=== PATIENT | male | born 1970 | race Hispanic/Latino ===

== ENCOUNTER 2020-09-13 21:12 | Inpatient (IN) | payer OTHER, SELFPAY ==
[~2020-09-13] VITALS: Ht 180.3 cm; Wt 95.6 kg
[2020-09-13 21:18] VITALS: BP 126/65
[2020-09-13 21:22] LABS: ABG BASE EXCESS 1.7 mmol/L (-2.0-3.0); ABG HCO3 25.1 mmol/L (21.0-28.0); ABG OXYGEN SATURATION 92.4 % (95.0-99.0); ABG PCO2 36 mmHg (35-48)
[2020-09-13] MEDS ORDERED: ALBUTEROL INHALER 90MCG/INH IH PRN (21:30)
[2020-09-13 21:38] LABS: BASOPHILS % (AUTO) 0.3 % (0.0-5.0); EOSINOPHILS % (AUTO) 0.3 % (0.0-8.0); HEMATOCRIT 39.9 % (42-54); LYMPHOCYTES % (AUTO) 6.2 % (21.0-51.0); MEAN CORPUSCULAR HEMOGLOBIN 29.1 pg (27.0-33.0); MEAN CORPUSCULAR HGB CONC 34.3 g/dL (32.0-36.0); MEAN CORPUSCULAR VOLUME 84.7 fL (79-99); MONOCYTES % (AUTO) 4.7 % (3.0-13.0); NEUTROPHILS % (AUTO) 86.6 % (40.0-77.0); PLATELET COUNT (AUTO) 399 K/uL (130-400); RED BLOOD CELL COUNT(AUTO) 4.71 MIL/uL (4.50-6.20); RED CELL DISTRIBUTION WIDTH 12.1 % (11.0-15.5); WHITE BLOOD COUNT (AUTO) 11.4 K/uL (4.8-10.8)
[2020-09-13 21:48] LABS: POTASSIUM 3.7 mmol/L (3.5-5.1)
[2020-09-13 21:52] LABS: ALBUMIN 2.9 g/dL (3.5-5.0); BILIRUBIN,TOTAL 1.1 mg/dL (0.2-1.0); TOTAL PROTEIN, SERUM 7.9 g/dL (6.0-8.3)
[2020-09-13 22:12] LABS: B-TYPE NATRIURETIC PEPTIDE 25 pg/mL (0-100)
[2020-09-13] MEDS ORDERED: ACETAMINOPHEN WITH CODEINE 1 TAB TAB PO ONE (22:30)
[2020-09-13] MEDS ORDERED: AZITHROMYCIN 250 MG TABLET PO ONE (22:30)
[2020-09-13] MEDS ORDERED: CEFTRIAXONE 1G VIAL IVP ONE (22:30)
[2020-09-13 22:37] VITALS: BP 114/55
[2020-09-13] MEDS: CEFTRIAXONE 1G VIAL IVP SCH (23:00)
[2020-09-13] MEDS: 0.9% NACL 250ML IVPB SCH (23:00)
[2020-09-13] MEDS: AZITHROMYCIN 500MG VIAL IVPB SCH (23:00)
[2020-09-13] MEDS ORDERED: ERGOCALCIFEROL (VITAMIN D2) 50,000 UNIT CAPSULE PO ONE (23:00)
[2020-09-13] MEDS ORDERED: LACTATED RINGERS 1000ML 1,000 ML IV SCH (23:00)
[2020-09-13] MEDS: DEXAMETHASONE SOD PHOSPHATE 4 MG/ML 1ML VIAL IVP SCH (23:23)
[2020-09-14] VITALS (8 sets, daily range): BP systolic 115–159; BP diastolic 63–78
[2020-09-14] MEDS ORDERED: OSELTAMIVIR PHOSPHATE 75 MG CAP PO SCH (00:30)
[2020-09-14] MEDS: FAMOTIDINE 20MG VIAL IV SCH ×2 (08:06→20:16)
[2020-09-14] MEDS: ASCORBIC ACID 500 MG TAB PO SCH (08:06)
[2020-09-14] MEDS: ZINC SULFATE 220 CAPSULE PO SCH (08:06)
[2020-09-14] MEDS: ENOXAPARIN SODIUM 40 MG/0.4 ML SYRINGE SQ SCH (08:07)
[2020-09-14 08:37] LABS: BASOPHILS % (AUTO) 0.2 % (0.0-5.0); EOSINOPHILS % (AUTO) 0.4 % (0.0-8.0); HEMATOCRIT 41.9 % (42-54); MEAN CORPUSCULAR HEMOGLOBIN 28.9 pg (27.0-33.0); MEAN CORPUSCULAR HGB CONC 33.4 g/dL (32.0-36.0); MEAN CORPUSCULAR VOLUME 86.4 fL (79-99); NEUTROPHILS % (AUTO) 88.4 % (40.0-77.0); PLATELET COUNT (AUTO) 433 K/uL (130-400); RED BLOOD CELL COUNT(AUTO) 4.85 MIL/uL (4.50-6.20); RED CELL DISTRIBUTION WIDTH 12.5 % (11.0-15.5); WHITE BLOOD COUNT (AUTO) 11.4 K/uL (4.8-10.8)
[2020-09-14 08:57] LABS: ALBUMIN 2.8 g/dL (3.5-5.0); BILIRUBIN,TOTAL 0.8 mg/dL (0.2-1.0); CREATININE 0.9 mg/dL (0.5-1.5); CRP QUANTITATIVE 142.9 mg/L (0.00-9.0); POTASSIUM 4.2 mmol/L (3.5-5.1)
[2020-09-14] MEDS: CEFTRIAXONE 1G VIAL IVP SCH ×2 (12:09→23:18)
[2020-09-14] MEDS ORDERED: AZITHROMYCIN 500MG+NS 250ML 250 ML IV ONE (22:34)
[2020-09-14] MEDS: DEXAMETHASONE SOD PHOSPHATE 4 MG/ML 1ML VIAL IVP SCH (23:18)
[2020-09-14] MEDS: 0.9% NACL 250ML IVPB SCH (23:18)
[2020-09-14] MEDS: AZITHROMYCIN 500MG VIAL IVPB SCH (23:19)
[2020-09-15 03:21] VITALS: BP 116/72
[2020-09-15 04:32] LABS: BASOPHILS % (AUTO) 0.2 % (0.0-5.0); EOSINOPHILS % (AUTO) 0.2 % (0.0-8.0); HEMATOCRIT 39.5 % (42-54); LYMPHOCYTES % (AUTO) 6.3 % (21.0-51.0); MEAN CORPUSCULAR HEMOGLOBIN 28.8 pg (27.0-33.0); MEAN CORPUSCULAR HGB CONC 33.9 g/dL (32.0-36.0); MEAN CORPUSCULAR VOLUME 84.9 fL (79-99); MONOCYTES % (AUTO) 2.8 % (3.0-13.0); NEUTROPHILS % (AUTO) 88.2 % (40.0-77.0); PLATELET COUNT (AUTO) 442 K/uL (130-400); RED BLOOD CELL COUNT(AUTO) 4.65 MIL/uL (4.50-6.20); RED CELL DISTRIBUTION WIDTH 12.2 % (11.0-15.5); WHITE BLOOD COUNT (AUTO) 13.7 K/uL (4.8-10.8)
[2020-09-15 04:49] LABS: ALBUMIN 2.4 g/dL (3.5-5.0); CREATININE 0.9 mg/dL (0.5-1.5); POTASSIUM 4.3 mmol/L (3.5-5.1); TOTAL PROTEIN, SERUM 7.3 g/dL (6.0-8.3)
[2020-09-15 05:15] LABS: CRP QUANTITATIVE 177.4 mg/L (0.00-9.0)
[2020-09-15 08:00] VITALS: BP 133/71
[2020-09-15] MEDS: ENOXAPARIN SODIUM 40 MG/0.4 ML SYRINGE SQ SCH (08:12)
[2020-09-15] MEDS: FAMOTIDINE 20MG VIAL IV SCH ×2 (08:12→20:35)
[2020-09-15] MEDS: ZINC SULFATE 220 CAPSULE PO SCH (08:12)
[2020-09-15] MEDS: ASCORBIC ACID 500 MG TAB PO SCH (08:12)
[2020-09-15] MEDS ORDERED: PHARMACY COMMUNICATION MISC SCH ×3 (09:30→11:00)
[2020-09-15] MEDS: CEFTRIAXONE 1G VIAL IVP SCH ×2 (11:12→22:29)
[2020-09-15 12:00] VITALS: BP 109/75
[2020-09-15] MEDS ORDERED: COMPOUND IV REFRIGERATED 1 EACH IVSOLN MISC PRN (15:00)
[2020-09-15] MEDS ORDERED: REMDESIVIR (EUA) 520 200 MG in 0.9% NACL 250ML 250 ML IV ONE (15:00)
[2020-09-15] MEDS ORDERED: 0.9% NACL 500ML IV.SOLN 500 ML IV ONE (15:25)
[2020-09-15 16:00] VITALS: BP 133/76
[2020-09-15 21:02] VITALS: BP 136/79
[2020-09-15] MEDS ORDERED: AZITHROMYCIN 500MG+NS 250ML 250 ML IV ONE (22:08)
[2020-09-15] MEDS: 0.9% NACL 250ML IVPB SCH (22:30)
[2020-09-15] MEDS: DEXAMETHASONE SOD PHOSPHATE 4 MG/ML 1ML VIAL IVP SCH (22:30)
[2020-09-15] MEDS: AZITHROMYCIN 500MG VIAL IVPB SCH (22:34)
[2020-09-15 23:23] VITALS: BP 136/77
[2020-09-16 03:05] VITALS: BP 131/73
[2020-09-16 03:58] LABS: BASOPHILS % (AUTO) 0.4 % (0.0-5.0); EOSINOPHILS % (AUTO) 0.1 % (0.0-8.0); HEMATOCRIT 40.5 % (42-54); LYMPHOCYTES % (AUTO) 5.7 % (21.0-51.0); MEAN CORPUSCULAR HEMOGLOBIN 29.3 pg (27.0-33.0); MEAN CORPUSCULAR HGB CONC 34.3 g/dL (32.0-36.0); MEAN CORPUSCULAR VOLUME 85.4 fL (79-99); NEUTROPHILS % (AUTO) 87.1 % (40.0-77.0); PLATELET COUNT (AUTO) 466 K/uL (130-400); RED BLOOD CELL COUNT(AUTO) 4.74 MIL/uL (4.50-6.20); RED CELL DISTRIBUTION WIDTH 12.1 % (11.0-15.5); WHITE BLOOD COUNT (AUTO) 12.8 K/uL (4.8-10.8)
[2020-09-16 04:33] LABS: ALBUMIN 2.2 g/dL (3.5-5.0); BILIRUBIN,TOTAL 0.6 mg/dL (0.2-1.0); CREATININE 0.8 mg/dL (0.5-1.5); CRP QUANTITATIVE 132.9 mg/L (0.00-9.0); POTASSIUM 4.3 mmol/L (3.5-5.1); TOTAL PROTEIN, SERUM 7.3 g/dL (6.0-8.3)
[2020-09-16] MEDS: REMDESIVIR LABS MISC SCH (07:16)
[2020-09-16 08:00] VITALS: BP 127/74
[2020-09-16] MEDS: FAMOTIDINE 20MG VIAL IV SCH ×2 (08:23→21:19)
[2020-09-16] MEDS: ZINC SULFATE 220 CAPSULE PO SCH (08:23)
[2020-09-16] MEDS: ASCORBIC ACID 500 MG TAB PO SCH (08:23)
[2020-09-16] MEDS: ENOXAPARIN SODIUM 40 MG/0.4 ML SYRINGE SQ SCH ×2 (08:24→21:24)
[2020-09-16] MEDS: CEFTRIAXONE 1G VIAL IVP SCH ×2 (11:22→23:05)
[2020-09-16 12:00] VITALS: BP 120/73
[2020-09-16] MEDS: REMDESIVIR (EUA) 520 100 MG in 0.9% NACL 250ML 250 ML IV SCH (14:48)
[2020-09-16] MEDS: OSELTAMIVIR PHOSPHATE 75 MG CAP PO SCH ×2 (14:50→21:19)
[2020-09-16 16:00] VITALS: BP 134/81
[2020-09-16] MEDS: SIMETHICONE 80 MG TAB.CHEW PO SCH (18:16)
[2020-09-16 20:39] VITALS: BP 131/79
[2020-09-16] MEDS ORDERED: AZITHROMYCIN 500MG+NS 250ML 250 ML IV ONE (22:36)
[2020-09-16] MEDS: DEXAMETHASONE SOD PHOSPHATE 4 MG/ML 1ML VIAL IVP SCH (23:05)
[2020-09-16] MEDS: AZITHROMYCIN 500MG VIAL IVPB SCH (23:06)
[2020-09-16] MEDS: 0.9% NACL 250ML IVPB SCH (23:06)
[2020-09-17] VITALS (7 sets, daily range): BP systolic 112–137; BP diastolic 65–78
[2020-09-17] MEDS: REMDESIVIR LABS MISC SCH (06:00)
[2020-09-17 06:15] LABS: BASOPHILS % (AUTO) 0.4 % (0.0-5.0); EOSINOPHILS % (AUTO) 0.1 % (0.0-8.0); HEMATOCRIT 40.4 % (42-54); LYMPHOCYTES % (AUTO) 6.2 % (21.0-51.0); MEAN CORPUSCULAR HEMOGLOBIN 28.7 pg (27.0-33.0); MEAN CORPUSCULAR HGB CONC 33.7 g/dL (32.0-36.0); MEAN CORPUSCULAR VOLUME 85.2 fL (79-99); MONOCYTES % (AUTO) 4.2 % (3.0-13.0); PLATELET COUNT (AUTO) 597 K/uL (130-400); RED BLOOD CELL COUNT(AUTO) 4.74 MIL/uL (4.50-6.20); RED CELL DISTRIBUTION WIDTH 12.3 % (11.0-15.5); WHITE BLOOD COUNT (AUTO) 11.9 K/uL (4.8-10.8)
[2020-09-17 07:05] LABS: CREATININE 0.8 mg/dL (0.5-1.5); CRP QUANTITATIVE 113.9 mg/L (0.00-9.0)
[2020-09-17] MEDS: ASCORBIC ACID 500 MG TAB PO SCH (08:49)
[2020-09-17] MEDS: OSELTAMIVIR PHOSPHATE 75 MG CAP PO SCH ×2 (08:49→20:42)
[2020-09-17] MEDS: ZINC SULFATE 220 CAPSULE PO SCH (08:49)
[2020-09-17] MEDS: FAMOTIDINE 20MG VIAL IV SCH (08:49)
[2020-09-17] MEDS: ENOXAPARIN SODIUM 40 MG/0.4 ML SYRINGE SQ SCH ×2 (08:50→20:44)
[2020-09-17] MEDS: CEFTRIAXONE 1G VIAL IVP SCH ×2 (10:15→23:08)
[2020-09-17] MEDS: PANTOPRAZOLE 40 MG TAB DR PO SCH (10:15)
[2020-09-17] MEDS ORDERED: PHARMACY COMMUNICATION MISC SCH ×2 (13:30→17:30)
[2020-09-17] MEDS: GUAIFENESIN-DM 200/20 MG 10 ML PO PRN ×2 (13:57→23:16)
[2020-09-17 15:14] LABS: ALBUMIN 2.4 g/dL (3.5-5.0); BILIRUBIN,DIRECT 0.2 mg/dL (0.0-0.3); BILIRUBIN,TOTAL 0.5 mg/dL (0.2-1.0); TOTAL PROTEIN, SERUM 6.5 g/dL (6.0-8.3)
[2020-09-17] MEDS: REMDESIVIR (EUA) 520 100 MG in 0.9% NACL 250ML 250 ML IV SCH (16:57)
[2020-09-17] MEDS: SIMETHICONE 80 MG TAB.CHEW PO SCH (16:59)
[2020-09-17] MEDS ORDERED: AZITHROMYCIN 500MG+NS 250ML 250 ML IV ONE (20:26)
[2020-09-17] MEDS: DEXAMETHASONE SOD PHOSPHATE 4 MG/ML 1ML VIAL IVP SCH (23:08)
[2020-09-17] MEDS: 0.9% NACL 250ML IVPB SCH (23:08)
[2020-09-17] MEDS: AZITHROMYCIN 500MG VIAL IVPB SCH (23:08)
[2020-09-18 03:00] VITALS: BP 109/54
[2020-09-18] MEDS: REMDESIVIR LABS MISC SCH (05:09)
[2020-09-18 05:21] LABS: BASOPHILS % (AUTO) 0.6 % (0.0-5.0); EOSINOPHILS % (AUTO) 0.4 % (0.0-8.0); HEMATOCRIT 41.5 % (42-54); LYMPHOCYTES % (AUTO) 6.4 % (21.0-51.0); MEAN CORPUSCULAR HEMOGLOBIN 28.8 pg (27.0-33.0); MEAN CORPUSCULAR HGB CONC 33.5 g/dL (32.0-36.0); MEAN CORPUSCULAR VOLUME 86.1 fL (79-99); MONOCYTES % (AUTO) 5.3 % (3.0-13.0); NEUTROPHILS % (AUTO) 81.3 % (40.0-77.0); PLATELET COUNT (AUTO) 692 K/uL (130-400); RED BLOOD CELL COUNT(AUTO) 4.82 MIL/uL (4.50-6.20); RED CELL DISTRIBUTION WIDTH 12.2 % (11.0-15.5)
[2020-09-18 05:53] LABS: ALBUMIN 2.2 g/dL (3.5-5.0); BILIRUBIN,TOTAL 0.4 mg/dL (0.2-1.0); CREATININE 0.8 mg/dL (0.5-1.5); CRP QUANTITATIVE 101.4 mg/L (0.00-9.0); POTASSIUM 4.5 mmol/L (3.5-5.1); TOTAL PROTEIN, SERUM 7.3 g/dL (6.0-8.3)
[2020-09-18 06:18] LABS: ERYTHROCYTE SEDIMENTATION RATE 86 MM/HR (0-20)
[2020-09-18 08:00] VITALS: BP 108/69
[2020-09-18] MEDS: OSELTAMIVIR PHOSPHATE 75 MG CAP PO SCH ×2 (09:11→21:25)
[2020-09-18] MEDS: ZINC SULFATE 220 CAPSULE PO SCH (09:11)
[2020-09-18] MEDS: PANTOPRAZOLE 40 MG TAB DR PO SCH (09:11)
[2020-09-18] MEDS: ENOXAPARIN SODIUM 40 MG/0.4 ML SYRINGE SQ SCH ×2 (09:11→21:25)
[2020-09-18] MEDS: ASCORBIC ACID 500 MG TAB PO SCH (09:11)
[2020-09-18] MEDS: CEFTRIAXONE 1G VIAL IVP SCH ×2 (11:17→21:24)
[2020-09-18 11:49] VITALS: BP 119/66
[2020-09-18 16:00] VITALS: BP 115/74
[2020-09-18] MEDS: REMDESIVIR (EUA) 520 100 MG in 0.9% NACL 250ML 250 ML IV SCH (16:56)
[2020-09-18] MEDS: SIMETHICONE 80 MG TAB.CHEW PO SCH (16:57)
[2020-09-18 20:39] VITALS: BP 114/68
[2020-09-18] MEDS ORDERED: DEXAMETHASONE SOD PHOSPHATE 4 MG/ML 1ML VIAL ONE (21:27)
[2020-09-18] MEDS ORDERED: AZITHROMYCIN 500MG+NS 250ML 250 ML IV ONE (21:28)
[2020-09-18] MEDS: AZITHROMYCIN 500MG VIAL IVPB SCH (21:36)
[2020-09-18] MEDS: 0.9% NACL 250ML IVPB SCH (21:36)
[2020-09-18] MEDS: DEXAMETHASONE SOD PHOSPHATE 4 MG/ML 1ML VIAL IVP SCH (21:37)
[2020-09-18] MEDS: GUAIFENESIN-DM 200/20 MG 10 ML PO PRN (21:47)
[2020-09-19] VITALS (7 sets, daily range): BP systolic 101–135; BP diastolic 52–80
[2020-09-19 04:57] LABS: BASOPHILS % (AUTO) 0.7 % (0.0-5.0); EOSINOPHILS % (AUTO) 0.3 % (0.0-8.0); HEMATOCRIT 39.5 % (42-54); LYMPHOCYTES % (AUTO) 6.8 % (21.0-51.0); MEAN CORPUSCULAR HEMOGLOBIN 28.8 pg (27.0-33.0); MEAN CORPUSCULAR HGB CONC 33.9 g/dL (32.0-36.0); MEAN CORPUSCULAR VOLUME 84.9 fL (79-99); MONOCYTES % (AUTO) 4.9 % (3.0-13.0); NEUTROPHILS % (AUTO) 81.8 % (40.0-77.0); RED BLOOD CELL COUNT(AUTO) 4.65 MIL/uL (4.50-6.20); RED CELL DISTRIBUTION WIDTH 12.3 % (11.0-15.5)
[2020-09-19 05:02] LABS: PLATELET COUNT (AUTO) 744 K/uL (130-400)
[2020-09-19 05:21] LABS: ALBUMIN 2.3 g/dL (3.5-5.0); BILIRUBIN,TOTAL 0.4 mg/dL (0.2-1.0); CREATININE 0.9 mg/dL (0.5-1.5); POTASSIUM 4.5 mmol/L (3.5-5.1); TOTAL PROTEIN, SERUM 7.3 g/dL (6.0-8.3)
[2020-09-19] MEDS: REMDESIVIR LABS MISC SCH (05:26)
[2020-09-19] MEDS: CEFTRIAXONE 1G VIAL IVP SCH ×2 (09:07→21:54)
[2020-09-19] MEDS: PANTOPRAZOLE 40 MG TAB DR PO SCH (09:07)
[2020-09-19] MEDS: ZINC SULFATE 220 CAPSULE PO SCH (09:08)
[2020-09-19] MEDS: OSELTAMIVIR PHOSPHATE 75 MG CAP PO SCH ×2 (09:08→21:54)
[2020-09-19] MEDS: ASCORBIC ACID 500 MG TAB PO SCH (09:08)
[2020-09-19] MEDS: ENOXAPARIN SODIUM 40 MG/0.4 ML SYRINGE SQ SCH ×2 (09:10→21:56)
[2020-09-19] MEDS: REMDESIVIR (EUA) 520 100 MG in 0.9% NACL 250ML 250 ML IV SCH (14:06)
[2020-09-19] MEDS: SIMETHICONE 80 MG TAB.CHEW PO SCH (16:44)
[2020-09-19] MEDS ORDERED: 0.9% NACL 250ML IVPB SCH (20:00)
[2020-09-19] MEDS ORDERED: DEXAMETHASONE SOD PHOSPHATE 4 MG/ML 1ML VIAL IVP SCH (20:00)
[2020-09-19] MEDS ORDERED: AZITHROMYCIN 500MG VIAL IVPB SCH (20:00)
[2020-09-19] MEDS: DEXAMETHASONE SOD PHOSPHATE 4 MG/ML 1ML VIAL IVP SCH (20:11)
[2020-09-19] MEDS ORDERED: AZITHROMYCIN 500MG+NS 250ML 250 ML IV ONE (20:51)
[2020-09-19] MEDS: AZITHROMYCIN 500MG VIAL IVPB SCH (20:53)
[2020-09-19] MEDS: 0.9% NACL 250ML IVPB SCH (20:53)
[2020-09-20 03:31] VITALS: BP 124/58
[2020-09-20 04:40] LABS: BASOPHILS % (AUTO) 0.8 % (0.0-5.0); EOSINOPHILS % (AUTO) 0.2 % (0.0-8.0); HEMATOCRIT 41.2 % (42-54); LYMPHOCYTES % (AUTO) 9.5 % (21.0-51.0); MEAN CORPUSCULAR HEMOGLOBIN 28.6 pg (27.0-33.0); MEAN CORPUSCULAR HGB CONC 33.3 g/dL (32.0-36.0); MONOCYTES % (AUTO) 4.7 % (3.0-13.0); NEUTROPHILS % (AUTO) 78.6 % (40.0-77.0); RED BLOOD CELL COUNT(AUTO) 4.79 MIL/uL (4.50-6.20); RED CELL DISTRIBUTION WIDTH 12.3 % (11.0-15.5); WHITE BLOOD COUNT (AUTO) 10.6 K/uL (4.8-10.8)
[2020-09-20 04:46] LABS: PLATELET COUNT (AUTO) 802 K/uL (130-400)
[2020-09-20 05:06] LABS: ALBUMIN 2.3 g/dL (3.5-5.0); BILIRUBIN,TOTAL 0.3 mg/dL (0.2-1.0); CREATININE 0.9 mg/dL (0.5-1.5); CRP QUANTITATIVE 32.7 mg/L (0.00-9.0); POTASSIUM 4.6 mmol/L (3.5-5.1); TOTAL PROTEIN, SERUM 7.2 g/dL (6.0-8.3)
[2020-09-20 08:03] VITALS: BP 124/75
[2020-09-20] MEDS ORDERED: APIXABAN 2.5 MG TABLET PO SCH (09:00)
[2020-09-20] MEDS ORDERED: DEXAMETHASONE 4 MG TAB PO SCH (09:00)
[2020-09-20] MEDS: ZINC SULFATE 220 CAPSULE PO SCH (10:19)
[2020-09-20] MEDS: CEFTRIAXONE 1G VIAL IVP SCH (10:19)
[2020-09-20] MEDS: OSELTAMIVIR PHOSPHATE 75 MG CAP PO SCH (10:19)
[2020-09-20] MEDS: ASCORBIC ACID 500 MG TAB PO SCH (10:19)
[2020-09-20] MEDS: PANTOPRAZOLE 40 MG TAB DR PO SCH (10:19)
[2020-09-20 11:53] VITALS: BP 114/72
[2020-09-20 16:21] VITALS: BP 126/79
[2020-09-20] MEDS ORDERED: PANT40TA PO (16:52)
[2020-09-20] MEDS ORDERED: DEXA6TAB PO (16:52)
[2020-09-20] MEDS ORDERED: ASCO500T20 PO (16:52)
[2020-09-20] MEDS ORDERED: ZINC220C6 PO (16:52)
[2020-09-20] MEDS ORDERED: ALBUHFA IH (16:52)
[2020-09-20] MEDS ORDERED: APIX2.5T PO (16:52)
[2020-09-20] MEDS: SIMETHICONE 80 MG TAB.CHEW PO SCH (17:25)
== END 2020-09-20 21:09 | disposition home or self-care (01) | DRG 177 ==
LOC: EDH 21:12 → EDHIP 21:13 → 2AH 09-14 10:41
PROVIDERS: ADMIT Internal Medicine; ATTEND Internal Medicine
PROC: XW033E5 Introduction of Remdesivir Anti-infective into Peripheral Vein, Percutaneous Approach, New Technology Group 5 (ICD-10-PCS; principal; 2020-09-15)
DX: U07.1 COVID-19 (principal); J12.82 Pneumonia due to coronavirus disease 2019; J96.01 Acute respiratory failure with hypoxia; E87.1 Hypo-osmolality and hyponatremia; D68.59 Other primary thrombophilia; J10.1 Influenza due to other identified influenza virus with other respiratory manifestations; B97.89 Other viral agents as the cause of diseases classified elsewhere; D72.829 Elevated white blood cell count, unspecified
CPT/HCPCS: 36415; 36600; 71045; 80048; 80053; 80076; 82728; 82803; 82948; 83605; 83615; 83880; 84145; 84484; 85025; 85378; 85651; 86140; 87040; 87635; 87637; 87804; 87880; 93005; 93970; 94760; 97039; G0378; J0456; J0696; J1100; J1650; J3490; J7040; J7050; J8540